=== PATIENT | male | born 1960 | race Caucasian/White ===

== ENCOUNTER 2019-08-31 10:05 | Observation (INO) | payer OTHER ==
[2019-08-31 10:34] LABS: #Basophils 0.1 thou/uL (0.0-0.2); #Eosinphils 0.2 thou/uL (0.0-0.7); #Lymphocytes 3.6 thou/uL (1.20-3.40); #Monocytes 0.6 thou/uL (0.11-0.59); #Neutrophils 6.3 thou/uL (1.40-6.50); %Eosinophils 2.2 % (0.0-10.0); %Lymphocytes 33.3 % (21.0-51.0); %Monocytes 5.3 % (0.0-10.0); %Neutrophils 58.2 % (42.0-75.0); Hemoglobin 15.5 g/dL (14.0-18.0); Mean Corpuscular HGB CONC 31.9 g/dL (32.0-36.0); Mean Corpuscular Hemoglobin 32.1 pg (27.0-31.0); Mean Platelet Volume 8.8 fL (7.4-10.4); Platelet Count 283 thou/uL (130-400); RBC Distribution Width 12.2 % (11.5-14.5); Red Blood Cell (RBC) Count 4.82 mill/uL (4.70-6.10); White Blood Cell (WBC) Count 10.8 thou/uL (4.8-10.8)
--- NOTE | 2019-08-31 10:56 | RAD ---
RADIOGRAPH CHEST 1 VIEW: DATE: 08/31/2019 HISTORY: 59-year-old male with chest pain: mid sternal chest tightness. FINDINGS: There are no air space densities, pulmonary edema, pneumothorax, or cardiomegaly. The lateral costop hrenic angles are sharp. Sternotomy wires. Surgical clips over the cardiac shadow. Linear metallic device in left upper cardia c shadow. Thin, retained metallic leads overlying left cardiac shadow. IMPRESSION: 1. No acute cardiopulmonary findings. 2. Status post coronary artery bypass graft surgery as evidence for coronary atherosclerotic disease . 3. Left atrial appendage closure device. 4. Retained cardiac leads. megan [] POS: Clement
[2019-08-31 11:03] LABS: ALT (SGPT) 16 U/L (8-55); AST (SGOT) 18 U/L (5-34); Albumin 4.3 g/dL (3.5-5.0); Alkaline Phosphatase 77 U/L (40-110); Anion Gap 12 mmol/L (10-20); BUN (Urea Nitrogen) 12 mg/dL (8.4-25.7); Bilirubin, Total 0.4 mg/dL (0.2-1.2); CK (CPK) 95 U/L (30-200); Calc. Creatinine Clearance 0 mL/min (70-130); Calcium 10.1 mg/dL (7.8-10.44); Carbon Dioxide 28 mmol/L (22-29); Chloride 101 mmol/L (98-107); Estimated GFR-MDRD 88; Globulin 3.2 g/dL (2.4-3.5); Glucose 95 mg/dL (70-105); Lipase 14 U/L (8-78); Potassium 4.2 mmol/L (3.5-5.1); Protein, Total 7.5 g/dL (6.0-8.3); Sodium 137 mmol/L (136-145)
[2019-08-31 11:29] LABS: INR-International Normal Ratio 0.9; PTT 30.8 SEC (22.9-36.1); Prothrombin Time 11.7 SEC (12.0-14.7)
[2019-08-31] MEDS ORDERED: Ondansetron ODT 4 MG TAB SL PRN (13:30)
[2019-08-31] MEDS ORDERED: Acetaminophen 325 MG TAB PO PRN ×2 (13:30→14:05)
[2019-08-31] MEDS ORDERED: Ondansetron PF 4 MG/2 ML Vial IVP PRN (13:30)
[2019-08-31 14:05] VITALS: BMI 22.3
[2019-08-31] MEDS ORDERED: hydrALAZINE 20 MG/ML VIAL SLOW IVP PRN (14:05)
[2019-08-31] MEDS ORDERED: Nitroglycerin 0.4 MG TAB (25 Tab Bottle) PO PRN (14:11)
[2019-08-31 14:50] LABS: Troponin I Less than 0.010 ng/mL (< 0.028)
[2019-08-31] MEDS ORDERED: Lorazepam 0.5 MG TAB PO PRN (14:52)
[2019-08-31] MEDS ORDERED: Fioricet 325/50/40 mg Tablet PO PRN (14:52)
--- NOTE | 2019-08-31 15:12 | HP ---
PRIMARY CARE PROVIDER: None. CHIEF COMPLAINT: Chest pain. HISTORY OF PRESENT ILLNESS: Mr. Castañeda is a pleasant 59-year-old gentleman, who was seen at [facility] on 08/31/2019. He has a significant cardiac and neurologic history. His physicians are in [place]. He recently moved to [facility] and is trying to establish care there. He was driving from [place] to [place] earlier today when he started having left lower extremity numbness and left upper extremity numbness and pain. He also reports feeling lightheaded. He reports diaphoresis and shortness of breath. He reports left-sided chest pain, that was tightness like sensation, 10/10 at its worst, not accompanied by nausea, nonradiating, no known aggravating factors, but it was relieved with nitroglycerin. The patient also reports that he presented to [facility] with above symptoms before he received the nitrate. There, he reportedly had a witnessed seizure, further details are not forthcoming. The patient reports having a history of seizure disorder, but it does not appear that he is on any medications for the same. He had CT scan of the head done at [facility] and he was subsequently transferred here. REVIEW OF SYSTEMS: All systems were reviewed and found to be negative except for pertinent positives mentioned above. PAST MEDICAL HISTORY: 1. Atrial fibrillation. 2. COPD. 3. Leukemia. 4. Status post chemotherapy and radiation therapy. 5. Coronary artery disease. 6. Epilepsy. PAST SURGICAL HISTORY: 1. Coronary artery bypass graft x4 vessels 2 years ago. 2. PCI with stents 1 year ago. 3. Left eye surgery. 4. Splenectomy. 5. Right arm surgery following spider bite. PSYCHIATRIC HISTORY: Anxiety. SOCIAL HISTORY: The patient smokes half-a-pack of cigarettes a day. He denies alcohol use or recreational drug use. FAMILY HISTORY: Significant for coronary artery disease in several family members. ALLERGIES: BACTRIM, FLAGYL, PENICILLIN. CURRENT MEDICATIONS: 1. Aspirin 81 mg daily. 2. Furosemide 40 mg daily. 3. Lorazepam 0.5 mg every 6 hours as needed. 4. Metoprolol tartrate 12.5 mg 2 times a day. 5. Potassium chloride 10 mEq daily. 6. Butalbital/acetaminophen/caffeine as needed. 7. Losartan 25 mg 2 times a day. 8. Plavix 75 mg daily. 9. Zetia 10 mg daily. PHYSICAL EXAMINATION: GENERAL: On examination, Mr. Castañeda is awake and alert, not in acute distress. VITAL SIGNS: Blood pressure is 112/63, pulse 49, respiratory rate 14, and oxygen saturation 98% on room air. He is afebrile. EYES: No scleral icterus. No conjunctival pallor. ENT: Moist mucosal membranes. No oropharyngeal erythema or exudates. NECK: Supple, nontender, trachea is midline. RESPIRATORY: Accessory muscles of breathing are not active. Chest wall movements are symmetric bilaterally. Lungs are clear to auscultation without wheeze, rhonchi, or crepitations. CARDIOVASCULAR: S1 and S2 are heard, bradycardic and regular. Peripheral pulses palpable. No pericardial rub. ABDOMEN: Soft, nontender. Bowel sounds are heard. NEUROLOGIC: Cranial nerves 2 through 12 are intact. Deep tendon reflexes 2+. MUSCULOSKELETAL: Power is 5/5 in all 4 extremities. SKIN: No rashes or subcutaneous nodules. LYMPHATIC: No cervical lymphadenopathy. PSYCHIATRIC: Normal mood, normal affect. The patient is oriented to person, place, and time. DIAGNOSTIC DATA: Mr. Castañeda's labs and investigations were reviewed. I reviewed his electrocardiogram, which shows sinus bradycardia, no ST changes to suggest an acute coronary syndrome. He had noncontrast CT scan of the brain at [facility] and it was reportedly normal. He has an unremarkable CBC, INR 0.9, and a normal comprehensive metabolic profile. Troponin-I is normal at 0.011. Lipase is normal. ASSESSMENT AND PLAN: Mr. Castañeda is a pleasant 59-year-old gentleman, who was seen at [facility] on 08/31/2019 following transfer from [facility]. His problem list includes: 1. Chest pain: Mr. Castañeda is presenting with chest pain. Given his significant cardiac history, he will be admitted to the hospital on observation status for telemetry monitoring and for stress test. Further management depending on outcome of the stress test. 2. Transient ischemic attack: His presentation is also consistent with transient ischemic attack with left upper and lower extremity numbness. He cannot obtain an MRI because he reportedly has hardware in his chest according to radiologist. We will check 2D echocardiogram and carotid Dopplers. We will consult Neurology Service for opinion and help with management. We will continue aspirin and Plavix. 3. Seizure: The patient reportedly also had a seizure while at the other emergency room. We will start him on seizure precautions. He is currently not on any medications for seizures. As mentioned, Neurology Service will be consulted, we will await for their opinion. 4. Chronic obstructive pulmonary disease: This appears to be stable. 5. History of atrial fibrillation: The patient is currently not on anticoagulation. Reason is unclear. He will be advised regarding anticoagulation and to follow up with his physicians for the same. 6. Dyslipidemia: Continue Zetia. 7. History of anxiety: Continue lorazepam p.r.n. Many thanks for allowing me to participate in your patient's care. Please feel free to contact me with any questions or concerns. LEVEL OF RISK: High. LEVEL OF COMPLEXITY: High. Job ID: [id number]
[2019-08-31] MEDS: Nicotine 14 MG PATCH TD SCH (15:17)
--- NOTE | 2019-08-31 15:30 | ULT ---
CAROTID ARTERIAL DOPPLER ULTRASOUND: DATE: 08/31/2019. COMPARISON: None. HISTORY: Transient ischemic attack. TECHNIQUE: Multiplanar grayscale sonographic imaging of the arterial structures of the neck obtained with color flow and spectral analysis. FINDINGS: There is diffuse intimal thickening with scattered areas of atherosclerotic plaque involving the mid/ distal common carotid artery and the proximal internal carotid artery bilaterally. Antegrade blood flow and normal arterial waveforms are documented within the carotid and the vertebra l system bilaterally. VESSEL PSV(CM/S) Right CCA 102 Right ICA 96 Right ECA 104 Left CCA 89 Left ICA 84 Left ECA 119 IC/CC ratio 0.9 bilaterally. IMPRESSION: No hemodynamically significant stenosis on the basis of sonographic velocity criteria. Transcribed Date/Time: 08/31/2019 3:41 PM
[2019-08-31 16:45] LABS: Troponin I Less than 0.010 ng/mL (< 0.028)
[2019-08-31] MEDS: Mometasone/Formoterol 120 PUFF INHALER INH SCH (19:50)
[2019-08-31] MEDS ORDERED: Potassium Chloride 10 MEQ TAB PO SCH (21:00)
[2019-08-31] MEDS: levETIRAcetam 500 MG TAB PO SCH (21:12)
[2019-08-31] MEDS: Metoprolol Tartrate 25 MG TAB PO SCH (21:28)
--- NOTE | 2019-08-31 22:41 | CON ---
DATE OF CONSULTATION: 08/31/2019 CONSULTING PHYSICIAN: Hospitalist Services. IMPRESSION: 1. Questionable transient ischemic attack with transient left-sided tingling. 2. Seizure disorder. 3. History of coronary disease with recurrent chest pain. PLAN: 1. Continue Keppra 750 mg twice a day. 2. Continue aspirin and Plavix. 3. Cardiac workup. HISTORY OF PRESENT ILLNESS: Mr. Castañeda is a 59-year-old man with a fairly impressive past medical history of coronary disease since he was in his 30s. He has had previous bypass surgery and stents. He has a history of COPD and leukemia. He has had a seizure disorder since the . He has been followed by neurologist in the past. He currently had some job changes and has not had routine followup. He developed tingling on the left side of the body associated with acute onset of left chest pain, which he described as 10/10. He was being seen in an outside clinic. He was given nitroglycerin and the chest pain improved. The numbness went away in about 30 minutes and did not affect his speech or strength. He had no alteration of consciousness until he had apparent seizure. He reports that his seizure was brought on by stressful situations. His last seizure was six months ago. He had a CT of the brain that was negative. His carotid ultrasound was clear. His lab work was all in normal range. He has been admitted for further cardiac workup. His echocardiogram and stress test are pending. PAST MEDICAL HISTORY: As listed above. ALLERGIES: BACITRACIN, FLAGYL, PENICILLIN. SOCIAL HISTORY: No tobacco use. MEDICATION LIST: Reviewed. FAMILY HISTORY: Positive for vascular disease. REVIEW OF SYSTEMS: Ten-system review of systems is otherwise negative. PHYSICAL EXAMINATION: GENERAL: He is a healthy-appearing middle-aged man, in no acute distress. VITAL SIGNS: Blood pressure 127/69, pulse 47, respirations 14. HEENT: Pupils are equal and reactive. Conjunctivae clear. Oropharynx clear. Cranium, normocephalic and atraumatic. NECK: Supple. No lymphadenopathy. EXTREMITIES: No cyanosis, clubbing, or edema. NEUROLOGIC: He is alert and appropriate. His speech is fluent and clear. Cranial nerves are intact. He has equal strength. His sensation was intact. No abnormal movements were seen. Gait was independent. EKG showed sinus rhythm. SUMMARY: This is a middle-aged man with history of seizures. He had a breakthrough event under stressful circumstance, somewhat questionable as to whether the tingling was related to TIA versus acute chest pain. Regardless, I would continue his aspirin and Plavix. I have increased his Keppra dose. I will be happy to follow up with him as an outpatient if he requires assistance in this area. Job ID: [id number] MTDD
[2019-09-01 04:58] LABS: #Basophils 0.1 thou/uL (0.0-0.2); #Eosinphils 0.5 thou/uL (0.0-0.7); #Lymphocytes 3.8 thou/uL (1.20-3.40); #Monocytes 0.6 thou/uL (0.11-0.59); #Neutrophils 3.5 thou/uL (1.40-6.50); %Basophils 1.6 % (0.0-1.0); %Eosinophils 6.2 % (0.0-10.0); %Lymphocytes 44.2 % (21.0-51.0); %Monocytes 6.9 % (0.0-10.0); %Neutrophils 41.2 % (42.0-75.0); Hemoglobin 15.3 g/dL (14.0-18.0); Mean Corpuscular HGB CONC 33.8 g/dL (32.0-36.0); Mean Platelet Volume 8.6 fL (7.4-10.4); Platelet Count 279 thou/uL (130-400); RBC Distribution Width 12.1 % (11.5-14.5); White Blood Cell (WBC) Count 8.6 thou/uL (4.8-10.8)
[2019-09-01 05:20] LABS: Anion Gap 13 mmol/L (10-20); BUN (Urea Nitrogen) 15 mg/dL (8.4-25.7); Calc. Creatinine Clearance 90 mL/min (70-130); Carbon Dioxide 25 mmol/L (22-29); Chloride 104 mmol/L (98-107); Cholesterol 257 mg/dl (< 200 Desired); Estimated GFR-MDRD Greater than 90; Glucose 98 mg/dL (70-105); HDL Cholesterol 64 mg/dL (>60 Neg Risk); LDL Cholesterol, Calculated 169 mg/dL; Potassium 4.3 mmol/L (3.5-5.1); Sodium 138 mmol/L (136-145); Triglycerides 118 mg/dL (Less than 150)
[2019-09-01] MEDS: Mometasone/Formoterol 120 PUFF INHALER INH SCH (06:55)
[2019-09-01] MEDS: levETIRAcetam 500 MG TAB PO SCH (07:49)
[2019-09-01] MEDS: Metoprolol Tartrate 25 MG TAB PO SCH (07:50)
[2019-09-01] MEDS ORDERED: Losartan 25 MG TAB PO SCH (09:00)
[2019-09-01] MEDS ORDERED: Enoxaparin Sodium 40 MG/0.4 ML SYRINGE SC SCH (09:00)
[2019-09-01] MEDS ORDERED: Aspirin Chewable 81 MG TAB PO SCH (09:00)
[2019-09-01] MEDS ORDERED: Furosemide 40 MG TAB PO SCH (09:00)
[2019-09-01] MEDS ORDERED: levETIRAcetam 500 MG TAB PO SCH (09:00)
[2019-09-01] MEDS ORDERED: Ezetimibe 10 MG TAB PO SCH (09:00)
[2019-09-01] MEDS ORDERED: Clopidogrel Bisulfate 75 MG TAB PO SCH (09:00)
[2019-09-01] MEDS ORDERED: Regadenoson 0.4 MG/5 ML SYRINGE ONE (13:07)
[2019-09-01] MEDS ORDERED: Iopamidol-370 76% 500 ML 1 ML ONE (13:52)
--- NOTE | 2019-09-01 14:00 | NM ---
EXAM: CARDIAC SPECT HISTORY: Chest pain, coronary artery disease, status post CABG, stent, into fibrillation, COPD, smoke r. TECHNIQUE: A myocardial perfusion scan was performed using the single isotope 1 day protocol with demetria hnetium 99m sestamibi. [10 mCi] was injected intravenously for the rest exam followed by 30 mCi for the stress study. Pharmacologic stress with Lexiscan was monitored and interpreted by Dr. Miller FINDINGS: A small fixed defect is seen in the inferior wall. No reversible defects are seen. Gated SPECT LVEF: 65% Wall motion exam: Normal IMPRESSION: No evidence of reversible ischemia.
[2019-09-01] MEDS: Nicotine 14 MG PATCH TD SCH (14:37)
[2019-09-01 15:57] VITALS: BP 132/90; TEMP 97.8
--- NOTE | 2019-09-01 16:23 | CT ---
CT PULMONARY ANGIOGRAM WITH IV CONTRAST AND 3D POSTPROCESSIN09/01/19 HISTORY: Elevated D-dimer, chest pain. Left facial numbness. There is good contrast opacification of the pulmonary artery vasculature without filling defects to s uggest pulmonary embolism. There are vascular calcifications without evidence of aneurysmal dilatatio n of the thoracic aorta. No pleural or pericardial effusions are seen. There are dependent changes in the lung bases. No pneumothoraces, lobar consolidation, or lung nodules, masses are seen. There are degenerative changes in the spine. Upper abdominal tomograms demonstrate tiny nonobstructing bilatera l renal calculi and changes of splenectomy. IMPRESSION: No CT evidence of pulmonary embolism. POS: MIKIE
--- NOTE | 2019-09-02 02:11 | DIS ---
DATE OF ADMISSION: 08/31/2019 DATE OF DISCHARGE: 09/01/2019 PRIMARY CARE PROVIDER: Unknown. DISCHARGE DIAGNOSES: 1. Chest pain. 2. Chest pain, most likely secondary to musculoskeletal etiology. 3. Seizure. 4. History of atrial fibrillation. CONDITION OF PATIENT ON THE DAY OF DISCHARGE: Stable. I assessed Mr. Castañeda on the day of discharge. He denies any chest pain or shortness of breath. Vital signs are stable. S1 and S2 are heard, regular. Lungs are clear to auscultation bilaterally. DISCHARGE MEDICATIONS: The patient was previously on Keppra 750 mg daily, this was changed to 750 mg 2 times a day. Otherwise, no change was made to his home medications as dictated on my history and physical note dated 08/31/2019. CONSULTATIONS DURING THIS HOSPITALIZATION: Neurology, Dr. Curry. HOSPITAL COURSE: Mr. Castañeda is a pleasant 59-year-old gentleman, who was admitted to [facility] for chest pain, seizure, and suspected TIA on 08/31/2019. Please refer to my history and physical note dated 08/31/2019, for further details. He was seen by Neurology Service. It was felt that his neurologic symptoms were secondary to seizure. His Keppra level was at 15.3. Keppra dose has been increased to 750 mg 2 times a day. Nuclear stress test did not show any evidence of reversible ischemia. Left ventricular ejection fraction was 65%. CT angiogram of the chest did not show any evidence of pulmonary embolism. At the time of this dictation, 2D echocardiogram report is pending. He is advised to follow up with his primary care provider for the same. His blood pressures were reasonable during this hospitalization. Heart rate was in the low 50s, but he was asymptomatic. He has been advised to check his blood pressure and heart rate 3 times a day and show the readings to primary care provider. He has a history of atrial fibrillation, but is not on chronic anticoagulation. I discussed the benefit of chronic anticoagulation in patients with atrial fibrillation. The patient reports that he will discuss with his primary care provider before taking a decision. Many thanks for allowing me to participate in your patient's care. Please feel free to contact me with any questions or concerns. On the day of discharge, he has white count of 8600, hemoglobin 15.3, platelet count 279,000. Normal electrolytes. Triglycerides 118, cholesterol 257 on fasting lipid profile, LDL cholesterol 169 and HDL cholesterol 64. He has been advised to follow up with primary care provider for management of dyslipidemia. DISCHARGE DESTINATION: Home. Job ID: [id number]
== END 2019-09-01 17:35 | disposition home or self-care (01) ==
LOC: ERS 10:05 → 2SE 13:12
PROVIDERS: ADMIT Internal Medicine; ATTEND Internal Medicine
DX: R07.89 Other chest pain (principal); G40.909 Epilepsy, unspecified, not intractable, without status epilepticus; I48.91 Unspecified atrial fibrillation; J44.9 Chronic obstructive pulmonary disease, unspecified; I25.10 Atherosclerotic heart disease of native coronary artery without angina pectoris; F41.9 Anxiety disorder, unspecified; F17.210 Nicotine dependence, cigarettes, uncomplicated; Z79.82 Long term (current) use of aspirin; Z79.899 Other long term (current) drug therapy; Z88.0 Allergy status to penicillin; Z88.1 Allergy status to other antibiotic agents; Z88.2 Allergy status to sulfonamides; Z95.1 Presence of aortocoronary bypass graft; Z95.5 Presence of coronary angioplasty implant and graft
CPT/HCPCS: 36415; 71045; 71275; 78452; 80048; 80053; 80061; 80177; 82550; 83690; 84484; 85025; 85379; 85610; 85730; 93005; 93017; 93306; 93880; 94760; A9500; G0378; J2785; Q9967